=== PATIENT | male | born 1980 | race Caucasian/White ===

== ENCOUNTER → 2024-08-14 | Day surgery (SDC) | payer BC ==
[2024-08-10 15:51] LABS: BASOPHILS % 0.1 % (0.0-1.0); EOSINOPHILS % 0.1 % (0.0-6.0); HEMATOCRIT 47.4 % (38.2-49.6); HEMOGLOBIN 15.1 g/dL (14.0-18.0); LYMPHOCYTES # (AUTO) 1.7 (1.0-3.2); LYMPHOCYTES % 24.9 % (18.0-39.1); MEAN CORPUSCULAR HEMOGLOBIN 29.8 pg (28-32); MEAN CORPUSCULAR HGB CONC 31.9 g/dL (31-35); MEAN CORPUSCULAR VOLUME 93.5 fL (81-99); MONOCYTES # (AUTO) 0.5 (0.2-0.8); MONOCYTES % 7.2 % (4.4-11.3); NEUTROPHILS # (AUTO) 4.5 (2.1-6.9); NEUTROPHILS % 67.4 % (38.7-80.0); PLATELET COUNT 196 x10e3/uL (140-360); RED BLOOD COUNT 5.07 x10e6/uL (4.3-5.7); RED CELL DISTRIBUTION WIDTH 13.4 % (11.7-14.4); WHITE BLOOD COUNT 6.67 x10e3/uL (4.8-10.8)
[2024-08-10 16:15] LABS: ANION GAP 16.2 mmol/L (8-16); CALCIUM 9.5 mg/dL (8.4-10.2); CREATININE, SERUM 1.21 mg/dL (0.72-1.25); POTASSIUM 4.2 mmol/L (3.5-5.1)
[~2024-08-14] MED LIST: ACETAMINOPHEN 1000 MG/100 ML 100 ML IV ONE; AMOXICILLIN500 MG PO; DOXYCYCLINE HY100 MG PO; HYDROCODONE/APAP 7.5MG-325MG 1 EA TAB ONE; KETAMINE 50MG/5ML SYR ONE; LIDOCAINE HCL 2% LOCAL INJ 5 ML SDV VIAL INJ ONE; MIDAZOLAM HCL 2 MG/2 ML VIAL ONE; OMEPRAZOLE40 MG PO; PREDNISONE20 MG PO; PROMETHAZI6.25 MG/5 PO; PROMETHAZINE HC25 M1 PO; PROPOFOL IV EMULSION 50 ML IV ONE; VENTOLIN HFA18 GM INH
[2024-08-14] MEDS: LACTATED RINGER'S 1,000 ML ONE (09:24)
[2024-08-14] MEDS: KETOROLAC TROMETHAMINE 30 MG/ML VIAL ONE (13:13)
[2024-08-14 13:25] VITALS: TEMP 97.6
[2024-08-14] MEDS: HYDROCODONE/APAP 7.5MG-325MG 1 EA TAB PO ONE (13:34)
[2024-08-14 13:40] VITALS: BP 122/72; PULSE 71; RESP 18; O2SAT 98
== END | disposition home or self-care (01) ==
LOC: OR 09:00
PROVIDERS: ATTEND Surgery
DX: K40.90 Unilateral inguinal hernia, without obstruction or gangrene, not specified as recurrent (principal); J44.9 Chronic obstructive pulmonary disease, unspecified; K21.9 Gastro-esophageal reflux disease without esophagitis; Z01.810 Encounter for preprocedural cardiovascular examination; Z01.812 Encounter for preprocedural laboratory examination; Z01.818 Encounter for other preprocedural examination; Z79.899 Other long term (current) drug therapy
CPT/HCPCS: 36415; 49505; 71046; 80048; 85025; 88302; 93005; C1781; J0131; J1885; J2003; J2250; J2704; J7121